=== PATIENT | male | born 1945 | race Caucasian/White ===

== ENCOUNTER 2022-01-15 20:23 | Inpatient (IN) | payer MEDICARE, OTHER ==
[2022-01-15 21:01] LABS: #Lymphocytes 0.7 thou/uL (1.20-3.40); #Monocytes 1.5 thou/uL (0.11-0.59); #Neutrophils 14.1 thou/uL (1.40-6.50); %Eosinophils 0.2 % (0.0-10.0); %Lymphocytes 4.4 % (21.0-51.0); %Monocytes 9.3 % (0.0-10.0); %Neutrophils 86.2 % (42.0-75.0); Mean Corpuscular HGB CONC 31.7 g/dL (32.0-36.0); Mean Corpuscular Hemoglobin 30.8 pg (27.0-31.0); Mean Corpuscular Volume 97.1 fL (78.0-98.0); Mean Platelet Volume 8.5 fL (7.4-10.4); Platelet Count 190 thou/uL (130-400); RBC Distribution Width 13.8 % (11.5-14.5); Red Blood Cell (RBC) Count 2.92 mill/uL (4.70-6.10); White Blood Cell (WBC) Count 16.4 thou/uL (4.8-10.8)
[2022-01-15 21:24] LABS: ALT (SGPT) 8 U/L (8-55); AST (SGOT) 10 U/L (5-34); Albumin 3.3 g/dL (3.4-4.8); Alkaline Phosphatase 64 U/L (40-110); Anion Gap 14 mmol/L (10-20); BUN (Urea Nitrogen) 61 mg/dL (8.4-25.7); Bilirubin, Total 0.4 mg/dL (0.2-1.2); Calc. Creatinine Clearance 0 mL/min (70-130); Calcium 8.6 mg/dL (7.8-10.44); Carbon Dioxide 20 mmol/L (23-31); Chloride 110 mmol/L (98-107); Estimated GFR 18; Globulin 1.9 g/dL (2.4-3.5); Glucose 140 mg/dL (83-110); Potassium 4.4 mmol/L (3.5-5.1); Protein, Total 5.2 g/dL (5.8-8.1); Sodium 140 mmol/L (136-145)
[2022-01-15 21:45] LABS: CKMB 2.4 ng/mL (0-6.6)
[2022-01-15] MEDS ORDERED: cefTRIAXone\\ROCEPHIN 2 GM VIAL ONE (22:36)
[2022-01-15] MEDS ORDERED: Aspirin Chewable 81 MG TAB ONE (22:59)
[2022-01-15] MEDS ORDERED: Ondansetron PF 4 MG/2 ML Vial IVP PRN (23:27)
[2022-01-15] MEDS ORDERED: Acetaminophen 650 MG Suppository PR PRN (23:27)
[2022-01-15] MEDS ORDERED: Ondansetron ODT 4 MG TAB PO PRN (23:27)
[2022-01-15] MEDS ORDERED: Morphine 4 MG/ML VIAL SLOW IVP PRN (23:45)
[2022-01-16 00:21] LABS: Magnesium 1.8 mg/dL (1.6-2.6)
[2022-01-16 00:26] LABS: Troponin I 0.064 ng/mL (< 0.028)
[2022-01-16] MEDS ORDERED: Electrolyte Replacement Protocol 1 EACH FS SCH (00:30)
[2022-01-16 01:58] VITALS: BMI 34.2
[2022-01-16] MEDS ORDERED: Carvedilol 3.125 MG TAB PO SCH (02:00)
[2022-01-16] MEDS: hydrALAZINE 20 MG/ML VIAL SLOW IVP PRN ×2 (02:38→08:43)
[2022-01-16 03:04] LABS: Hemoglobin 9.1 g/dL (14.0-18.0); Mean Corpuscular HGB CONC 32.6 g/dL (32.0-36.0); Mean Corpuscular Hemoglobin 31.7 pg (27.0-31.0); Mean Corpuscular Volume 97.4 fL (78.0-98.0); Mean Platelet Volume 8.4 fL (7.4-10.4); Platelet Count 174 thou/uL (130-400); RBC Distribution Width 13.8 % (11.5-14.5); Red Blood Cell (RBC) Count 2.87 mill/uL (4.70-6.10); White Blood Cell (WBC) Count 20.4 thou/uL (4.8-10.8)
[2022-01-16 03:23] LABS: Band 8 % (5-11); Lymphocytes 7 % (21-51); MDiff Complete? YES; Monocytes 3 % (0-10); Myelocyte 1 % (0-0); Neutrophil 81 % (42-75); Troponin I 0.071 ng/mL (< 0.028)
[2022-01-16 03:32] LABS: Anion Gap 15 mmol/L (10-20); BUN (Urea Nitrogen) 63 mg/dL (8.4-25.7); Calc. Creatinine Clearance 27 mL/min (70-130); Calcium 8.8 mg/dL (7.8-10.44); Carbon Dioxide 18 mmol/L (23-31); Chloride 111 mmol/L (98-107); Estimated GFR 18; Glucose 142 mg/dL (83-110); Iron 9 ug/dL (65-175); Iron Binding Capacity, Total 175 mcg/dL (261-462); Potassium 4.3 mmol/L (3.5-5.1); Sodium 140 mmol/L (136-145)
[2022-01-16 03:49] LABS: Thyroid Stimulating Hormone 0.4357 uIU/mL (0.35-4.94)
[2022-01-16 03:58] LABS: Ferritin 244.64 ng/mL (22-322)
[2022-01-16 06:30] LABS: SARS-CoV-2 NAA Rapid Test Not Detected (NotDetected)
[2022-01-16] MEDS: hydrALAZINE 25 MG TAB PO SCH ×4 (08:41→21:03)
[2022-01-16] MEDS: Isosorbide Dinitrate 20 MG TAB PO SCH ×2 (08:41→21:04)
[2022-01-16] MEDS: Carvedilol 3.125 MG TAB PO SCH ×2 (08:42→17:11)
[2022-01-16] MEDS: Acetaminophen 325 MG TAB PO PRN (08:47)
[2022-01-16] MEDS ORDERED: Enoxaparin Sodium 30 MG/0.3 ML SYRINGE SC SCH (09:00)
[2022-01-16 09:09] LABS: Bacteria/HPF None Seen HPF (None Seen); Bilirubin Negative (Negative); Blood, Urine Negative (Negative); Clarity Clear (Clear); Glucose, Urine (Dipstick) Normal (Negative); Ketone, Urine Negative (Negative); Leukocyte Negative Leu/uL (Negative); Nitrite Negative (Negative); Protein, Urine (Dipstick) 200 mg/dL (Neg-Trace); RBC/HPF 0-3 HPF (0-3); Specific Gravity, Urine 1.015 (1.002-1.036); Squamous Epithelial 0-3 HPF (0-3); Urobilinogen Normal mg/dL (Less than 2); WBC/HPF 0-3 HPF (0-3); pH, Urine 5.5 (5.0-9.0)
[2022-01-16] MEDS ORDERED: Lidocaine 5% Patch TD SCH ×2 (09:27→09:45)
[2022-01-16] MEDS ORDERED: HYDROmorphone 0.5 MG/0.5 ML SYRINGE SLOW IVP SCH ×3 (09:30→16:00)
[2022-01-16 10:20] LABS: Creatinine, Urine 82.23 mg/dL (63-166)
[2022-01-16] MEDS ORDERED: Furosemide 40 MG/4 ML VIAL SLOW IVP SCH (10:30)
[2022-01-16] MEDS ORDERED: Pantoprazole 40 MG VIAL IVP SCH ×2 (10:38→10:45)
[2022-01-16] MEDS ORDERED: Iron, Sodium Ferric Gluconate 250 MG in Sodium Chloride 0.9% 250 ML 250 ML IVPB SCH (12:00)
[2022-01-16] MEDS: Heparin 5,000 UNITS/ML VIAL SC SCH ×2 (14:19→21:04)
[2022-01-16] MEDS ORDERED: Sodium Bicarbonate Tab 325 MG TAB PO SCH ×2 (15:45→21:00)
[2022-01-16] MEDS ORDERED: Meropenem 1 GM in Sodium Chloride 0.9% 100 ML IVPB SCH ×2 (16:31→17:30)
[2022-01-16] MEDS ORDERED: cloNIDine 0.1 MG TAB PO SCH (16:45)
[2022-01-16 17:21] LABS: Anion Gap 16 mmol/L (10-20); BUN (Urea Nitrogen) 59 mg/dL (8.4-25.7); Calc. Creatinine Clearance 28 mL/min (70-130); Calcium 8.8 mg/dL (7.8-10.44); Carbon Dioxide 17 mmol/L (23-31); Chloride 111 mmol/L (98-107); Estimated GFR 18; Glucose 147 mg/dL (83-110); Potassium 4.5 mmol/L (3.5-5.1); Sodium 139 mmol/L (136-145)
[2022-01-16] MEDS ORDERED: Transdermal Patch Removal TOP SCH (21:00)
[2022-01-16] MEDS ORDERED: Azithromycin 500 MG in Sodium Chloride 0.9% 250 ML 250 ML IVPB SCH (21:00)
[2022-01-16] MEDS ORDERED: cefTRIAXone\\ROCEPHIN 1 GM in Sodium Chloride 0.9% 100 ML IVPB SCH (21:00)
[2022-01-16] MEDS: Furosemide 40 MG/4 ML VIAL SLOW IVP SCH (21:04)
[2022-01-16 21:18] VITALS: BP 191/68
[2022-01-16] MEDS: Morphine 4 MG/ML VIAL SLOW IVP PRN (22:13)
[2022-01-17] MEDS ORDERED: Meropenem 500 MG in Sodium Chloride 0.9% 100 ML IVPB SCH (01:00)
[2022-01-17] MEDS: Acetaminophen 325 MG TAB PO PRN (02:28)
[2022-01-17] MEDS: Morphine 4 MG/ML VIAL SLOW IVP PRN (02:33)
[2022-01-17 04:54] LABS: Anion Gap 14 mmol/L (10-20); BUN (Urea Nitrogen) 61 mg/dL (8.4-25.7); Calc. Creatinine Clearance 27 mL/min (70-130); Calcium 8.8 mg/dL (7.8-10.44); Carbon Dioxide 21 mmol/L (23-31); Chloride 109 mmol/L (98-107); Estimated GFR 18; Glucose 106 mg/dL (83-110); Magnesium 1.9 mg/dL (1.6-2.6); Phosphorus 4.2 mg/dL (2.3-4.7); Potassium 4.4 mmol/L (3.5-5.1); Sodium 140 mmol/L (136-145)
[2022-01-17] MEDS: Furosemide 40 MG/4 ML VIAL SLOW IVP SCH (05:20)
[2022-01-17 05:45] LABS: Band 7 % (5-11); Hemoglobin 8.2 g/dL (14.0-18.0); Lymphocytes 8 % (21-51); MDiff Complete? YES; Mean Corpuscular HGB CONC 31.5 g/dL (32.0-36.0); Mean Corpuscular Hemoglobin 30.7 pg (27.0-31.0); Mean Corpuscular Volume 97.6 fL (78.0-98.0); Mean Platelet Volume 8.5 fL (7.4-10.4); Monocytes 1 % (0-10); Neutrophil 84 % (42-75); Platelet Count 191 thou/uL (130-400); RBC Distribution Width 13.9 % (11.5-14.5); Red Blood Cell (RBC) Count 2.65 mill/uL (4.70-6.10)
[2022-01-17 07:59] VITALS: TEMP 98.4
[2022-01-17] MEDS ORDERED: cloNIDine 0.1 MG TAB PO SCH (09:00)
[2022-01-17] MEDS ORDERED: Pantoprazole 40 MG VIAL IVP SCH (09:00)
[2022-01-17] MEDS ORDERED: Lidocaine 5% Patch TD SCH (09:00)
== END 2022-01-17 08:52 | disposition left against medical advice (07) | DRG 193 ==
LOC: ERS 20:23 → 2NO 23:00 → IMCU/EMU 01-16 20:36
PROVIDERS: ADMIT Student in an Organized Health Care Education/Training Program; ATTEND Internal Medicine
DX: J18.9 Pneumonia, unspecified organism (principal); J96.01 Acute respiratory failure with hypoxia; J44.0 Chronic obstructive pulmonary disease with (acute) lower respiratory infection; N17.9 Acute kidney failure, unspecified; J98.11 Atelectasis; E87.2 Acidosis; I13.0 Hypertensive heart and chronic kidney disease with heart failure and stage 1 through stage 4 chronic kidney disease, or unspecified chronic kidney disease; G93.49 Other encephalopathy; I16.1 Hypertensive emergency; I50.9 Heart failure, unspecified; Z20.822 Contact with and (suspected) exposure to COVID-19; G89.29 Other chronic pain; I48.91 Unspecified atrial fibrillation; M19.90 Unspecified osteoarthritis, unspecified site; G25.81 Restless legs syndrome; R79.89 Other specified abnormal findings of blood chemistry; M54.50 Low back pain, unspecified; E66.9 Obesity, unspecified; N18.30 Chronic kidney disease, stage 3 unspecified; D63.1 Anemia in chronic kidney disease; E11.22 Type 2 diabetes mellitus with diabetic chronic kidney disease; I16.0 Hypertensive urgency; F03.90 Unspecified dementia, unspecified severity, without behavioral disturbance, psychotic disturbance, mood disturbance, and anxiety; G47.33 Obstructive sleep apnea (adult) (pediatric); D50.9 Iron deficiency anemia, unspecified; M10.9 Gout, unspecified; N40.0 Benign prostatic hyperplasia without lower urinary tract symptoms; Z87.442 Personal history of urinary calculi; Z90.89 Acquired absence of other organs; Z88.8 Allergy status to other drugs, medicaments and biological substances; Z68.33 Body mass index [BMI] 33.0-33.9, adult; Z79.899 Other long term (current) drug therapy; Z91.14 Patient's other noncompliance with medication regimen
CPT/HCPCS: 36415; 71045; 76770; 80048; 80053; 81001; 82553; 82570; 82728; 83540; 83550; 83735; 83880; 84100; 84145; 84156; 84300; 84443; 84484; 84540; 85025; 93005; 93010; 96374; 97139; C9113; J0360; J0696; J1170; J1644; J1650; J1940; J2185; J2270; J2916; J3490; J7050; U0002

== ENCOUNTER 2022-05-16 11:14 | Outpatient (CLI) | payer OTHER | END 2022-05-16 11:15 | disposition home or self-care (01) | LOC: SCSMRI 11:14 | PROVIDERS: ATTEND Orthopaedic Surgery Hand Surgery | DX: M12.812 Other specific arthropathies, not elsewhere classified, left shoulder (principal); M12.811 Other specific arthropathies, not elsewhere classified, right shoulder; M75.122 Complete rotator cuff tear or rupture of left shoulder, not specified as traumatic; M75.121 Complete rotator cuff tear or rupture of right shoulder, not specified as traumatic; M19.011 Primary osteoarthritis, right shoulder; M94.261 Chondromalacia, right knee ==